=== PATIENT | female | born 1970 | race Caucasian/White ===

== ENCOUNTER 2018-05-16 08:03 | Day surgery (SDC) | payer BC ==
[~2018-05-16] VITALS: Ht 162.6 cm; Wt 113.4 kg
[~2018-05-16 08:03] MED LIST: ADVIL200 MG PO; BENICAR5 MG PO; GLUCOTROL5 MG PO; HYDROCODON-ACE1 EAC7 PO; JARDIANCE10 MG PO; LOSARTAN POTAS100 MG PO; MAGNESIUM250 M1 PO; ONGLYZA5 MG PO; POTASSIUM-9999 MG PO; PRAVACHOL20 MG PO; SINGULAIR10 MG PO; ZOFRAN4 MG PO
[2018-05-16 08:30] VITALS: BP 143/84
[2018-05-16] MEDS ORDERED: VICODIN 5-3001 EACH PO (10:42)
[2018-05-16] MEDS ORDERED: NORCO 5/3251 TABLET PO (10:43)
[2018-05-16 11:28] VITALS: BP 131/62
[2018-05-16 12:01] VITALS: BP 118/71
== END 2018-05-16 12:11 | disposition home or self-care (01) ==
LOC: SDC 08:03
PROVIDERS: Obstetrics & Gynecology
DX: N92.0 Excessive and frequent menstruation with regular cycle (principal); E11.9 Type 2 diabetes mellitus without complications; Z79.84 Long term (current) use of oral hypoglycemic drugs; E78.5 Hyperlipidemia, unspecified; E66.9 Obesity, unspecified; Z68.41 Body mass index [BMI] 40.0-44.9, adult; F32.9 Major depressive disorder, single episode, unspecified; Z90.49 Acquired absence of other specified parts of digestive tract; Z98.51 Tubal ligation status; Z88.0 Allergy status to penicillin; Z88.1 Allergy status to other antibiotic agents; Z88.8 Allergy status to other drugs, medicaments and biological substances; Z82.5 Family history of asthma and other chronic lower respiratory diseases; Z80.49 Family history of malignant neoplasm of other genital organs; Z83.3 Family history of diabetes mellitus
CPT/HCPCS: 82948; 88305; J0330; J0690; J1100; J1885; J2250; J2405; J3010